=== PATIENT | female | born 1945 | race Caucasian/White ===

== ENCOUNTER → 2016-11-21 | Outpatient (CLI) | payer OTHER, MEDICARE | LOC: FIMAGING 10:00 | PROVIDERS: ATTEND Physical Medicine & Rehabilitation | DX: M50.321 Other cervical disc degeneration at C4-C5 level (principal); M50.322 Other cervical disc degeneration at C5-C6 level; M50.323 Other cervical disc degeneration at C6-C7 level; M12.88 Other specific arthropathies, not elsewhere classified, other specified site ==

== ENCOUNTER → 2017-03-12 | Outpatient (CLI) | payer OTHER, MEDICARE | LOC: BMCIMAGING 12:54 | PROVIDERS: ATTEND Family Medicine | DX: Z12.31 Encounter for screening mammogram for malignant neoplasm of breast (principal); Z85.3 Personal history of malignant neoplasm of breast; Z80.3 Family history of malignant neoplasm of breast | CPT/HCPCS: G0202 ==

== ENCOUNTER → 2017-12-02 | Outpatient (CLI) | payer OTHER, MEDICARE | LOC: BMCIMAGING 13:30 | PROVIDERS: ATTEND Internal Medicine | DX: Z13.820 Encounter for screening for osteoporosis (principal); M81.0 Age-related osteoporosis without current pathological fracture; Z78.0 Asymptomatic menopausal state; Z85.3 Personal history of malignant neoplasm of breast ==

== ENCOUNTER → 2018-03-18 | Outpatient (CLI) | payer OTHER, MEDICARE | LOC: BMCIMAGING 14:01 | PROVIDERS: ATTEND Internal Medicine | DX: Z12.31 Encounter for screening mammogram for malignant neoplasm of breast (principal); Z86.000 Personal history of in-situ neoplasm of breast; Z80.3 Family history of malignant neoplasm of breast ==

== ENCOUNTER 2018-07-09 13:45 | Observation (INO) | payer OTHER, MEDICARE ==
[2018-07-09] MEDS ORDERED: NS 1,000 ML IV ONE (13:57)
[2018-07-09] MEDS ORDERED: IOPAMIDOL (ISOVUE 370) 100 ML BTL IV ONE (14:00)
--- NOTE | 2018-07-09 14:02 | EDPHY ---
H & P Time Seen by Provider: 07/09/18 13:48 HPI/ROS: CHIEF COMPLAINT: Difficulty speaking, feeling jittery HISTORY OF PRESENT ILLNESS: The patient is a 72-year-old female with a history of bipolar 2 disorder on Seroquel, Lamictal and Ativan who noticed at 1245 the that she felt like she had taken LSD which she states she has not done for 50 years. She states that she has trouble speaking and that her words seem encumbered. Her speech is not slurred. She has trouble forming words. She also states that she felt like she was vibrating. She has not had any recent changes in her medication. Her noticed the difference dramatically compared to earlier this morning. They called 911. Her stroke scale by EMS was negative. She also thinks that she is dehydrated. Severity: Moderate Modifying factors: None REVIEW OF SYSTEMS: Constitutional: denies: chills, fever, recent illness, recent injury EENTM: denies: blurred vision, double vision, nose congestion Respiratory: denies: cough, shortness of breath Cardiac: denies: chest pain, irregular heart rate, lightheadedness, palpitations Gastrointestinal/Abdominal: denies: abdominal pain, diarrhea, nausea, vomiting, blood streaked stools Genitourinary: denies: dysuria, frequency, hematuria, pain Musculoskeletal: denies: joint pain, muscle pain Skin: denies: lesions, rash, jaundice, bruising Neurological: See HPI denies: headache, numbness, paresthesia, tingling, dizziness, weakness Hematologic/Lymphatic: denies: blood clots, easy bleeding, easy bruising Immunologic/allergic: denies: HIV/AIDS, transplant 10 systems reviewed and negative except as noted - Physical Exam General Appearance: WD/WN, mild distress Eyes, Ears, Nose, Throat Exam: PERRL/EOMI, normal ENT inspection, pharynx normal Neck: non-tender, full range of motion, supple, normal inspection. No: stiff neck, tender lateral Cardiovascular/Chest: normal peripheral pulses, regular rate, rhythm Respiratory: chest non-tender, lungs clear, normal breath sounds. No: crackles , rhonchi Gastrointestinal/Abdominal: normal bowel sounds, non tender, soft Back Exam: normal inspection Extremity: normal range of motion, non-tender, normal inspection Mental Status: alert, oriented x 3 CN's Exam: normal hearing, normal speech, PERRL, normal eye position, normal gag reflex, normal pupil position, tends to stutter over words and has trouble pronouncing the words but does not have obvious slurred speech or aphasia. No: facial asymmetry, facial droop, facial paresthesias, gaze palsy, tongue deviation to R, tongue deviation to L Coordination/Gait: normal finger to nose, normal gait Motor/Sensory: normal. No: motor deficit, sensory deficit, pronator drift (R), pronator drift (L), weak motor strength RUE, weak motor strength LUE, weak motor strength RLE, weak motor strength LLE reports difficulty walking and required the assistance of both EMS personnel. NIH stroke scale 0. DTR: tricep (R): 2+, tricep (L): 2+, knee (R): 2+, knee (L): 2+ Skin Exam: warm/dry, normal color Lymphatic: no adenopathy Source: Patient, Family, EMS Exam Limitations: No limitations - Medical/Surgical History Hx Asthma: No Hx Chronic Respiratory Disease: No Hx Diabetes: No Hx Cardiac Disease: No Hx Renal Disease: No Hx Cirrhosis: No Hx Alcoholism: No Hx HIV/AIDS: No - Family History Significant Family History: No pertinent family hx - Social History Smoking Status: Never smoked Alcohol Use: Sober Drug Use: None Constitutional: Initial Vital Signs Heart Rate 92 07/09/18 13:49 Respiratory Rate 18 07/09/18 13:49 Blood Pressure 120/60 07/09/18 13:49 O2 Sat (%) 98 07/09/18 13:49 O2 Delivery Mode Room Air Allergies/Adverse Reactions: Sulfa (Sulfonamide Antibiotics) Allergy (Severe, Verified 07/09/18 17:13) Rash Home Medications: Medication Instructions Recorded Estring 1 each VG Q90D 07/09/18 Ibuprofen [Motrin (*)] 600 mg PO BID PRN 07/09/18 LORazepam [Ativan (*)] 0.5 mg PO HS 07/09/18 Ondansetron Odt [Zofran Odt 4 mg 4 mg PO DAILY PRN 07/09/18 (*)] Oxybutynin Chloride [Ditropan 5mg 5 mg PO DAILY 07/09/18 (RX)] QUEtiapine FUMARATE [Seroquel 25 25 mg PO HS 07/09/18 mg (*)] QUEtiapine FUMARATE [Seroquel 50 50 mg PO HS 07/09/18 mg (*)] SUMAtriptan [Imitrex Sc 6 MG Inj 6 mg SQ DAILY PRN 07/09/18 (RX)] Sumatriptan Succinate [Imitrex] 100 mg PO DAILY PRN 07/09/18 lamoTRIgine [LamICTAL 100 MG (*)] 100 mg PO DAILY 07/09/18 tiZANidine HCL [Zanaflex 2MG (*)] 2 mg PO DAILY PRN 07/09/18 Medical Decision Making - Diagnostics EKG Interpretation: An EKG obtained and was read and documented in trace view. Please see trace view for full reading and report. Sinus tachycardia, no acute ischemic changes Imaging Results: Imaging Impressions Chest X-Ray 07/09/18 13:57 Impression: Negative portable chest x-ray. Head CT 07/09/18 13:57 Impression: No acute intercranial process. Findings and recommendations discussed with MATILDE BYRNES at 1420 hour, 07/09. Head CTA 07/09/18 13:57 Impression: 1. Normal CT angiogram of the neck. Incidental small caliber right vertebral artery is evident. 2. Normal CT angiogram of the [place], as detailed above. 3. Mild degenerative disk disease lower cervical spine. Note: All calculations were performed using NASCET criteria. Findings discussed with Matilde Byrnes M.D. at 15:37 hour, 07/09/2018. Neck CTA 07/09/18 13:57 Impression: 1. Normal CT angiogram of the neck. Incidental small caliber right vertebral artery is evident. 2. Normal CT angiogram of the [place], as detailed above. 3. Mild degenerative disk disease lower cervical spine. Note: All calculations were performed using NASCET criteria. Findings discussed with Matilde Byrnes M.D. at 15:37 hour, 07/09/2018. Imaging: Discussed imaging studies w/ call center representative Radiologist ED Course/Re-evaluation: The patient's NIH stroke scale 0 however she does have difficulty forming the words in her mouth and she and both state that this is an acute change about an hour ago. I have called a stroke alert. She also appears dehydrated will began hydrating. 2:30 p.m. I discussed the case with Dr. Zimmerman from [facility] who will elevate. 2:45 p.m. the patient is improving spontaneously although not completely resolved. Dr. Zimmerman does not recommend tPA at this time because the improvement. He does recommend CT angio. If this is negative he recommends admission for observation and MRI 3:[address] angio was clear. The patient her feel like her symptoms are starting to get worse again and that she is feeling jittery. I do not appreciate any difference clinically. Will have [facility] re-evaluate. [facility] has re-evaluated and still feels that the patient does not meet criteria for tPA. I discussed the case with Dr. Wesley its PA who will admit to the medical service. Differential Diagnosis: Partial list of the Differential diagnosis considered include but were not limited to; CVA, anxiety, and although unlikely based on the history and physical exam, I also considered seizure, medication reaction. Critical Care Time: Critical care time spent by me, Dr. Byrnes exclusive with this patient was 45 minutes, exclusive of the PA time exclusive of procedures. The organ system that was at risk was neurologic and I gave multiple re-evaluations, consultation and admission to prevent worsening of the patient's condition - Data Points Laboratory Results: Laboratory Results 07/09/18 13:50 07/09/18 13:50 07/09/18 07/09/18 07/09/18 14:03 13:50 13:50 WBC RBC Hgb POC Hgb 15.0 gm/dL gm/dL (12.6-16.3) Hct POC Hct 44 % % (38-47) MCV MCH MCHC RDW Plt Count MPV Neut % (Auto) Lymph % (Auto) Taney % (Auto) Eos % (Auto) Baso % (Auto) Nucleat RBC Rel Count Absolute Neuts (auto) Absolute Lymphs (auto) Absolute Monos (auto) Absolute Eos (auto) Absolute Basos (auto) Absolute Nucleated RBC Immature Gran % Immature Gran # PT 13.0 SEC SEC (12.0-15.0) INR 0.96 (0.83-1.16) APTT 26.0 SEC SEC (23.0-38.0) POC Sodium 139 mEq/L mEq/L (135-145) Sodium 136 mEq/L mEq/L (135-145) POC Potassium 3.7 mEq/L mEq/L (3.3-5.0) Potassium 4.3 mEq/L mEq/L (3.3-5.0) POC Chloride 102 mEq/L mEq/L (97-110) Chloride 102 mEq/L mEq/L (97-110) Carbon Dioxide 22 mEq/l mEq/l (22-31) Anion Gap 12 mEq/L mEq/L (6-14) POC BUN 18 mg/dL mg/dL (7-23) BUN 19 mg/dL mg/dL (7-23) Creatinine 0.9 mg/dL mg/dL (0.6-1.0) POC Creatinine 0.9 mg/dL mg/dL (0.6-1.0) Estimated GFR > 60 Glucose 116 mg/dL H mg/dL (70-100) POC Glucose 121 mg/dL H mg/dL (70-100) Calcium 9.9 mg/dL mg/dL (8.5-10.4) 07/09/18 13:50 WBC 11.21 10^3/uL H 10^3/uL (3.80-9.50) RBC 4.54 10^6/uL 10^6/uL (4.18-5.33) Hgb 13.9 g/dL g/dL (12.6-16.3) POC Hgb Hct 40.9 % % (38.0-47.0) POC Hct MCV 90.1 fL fL (81.5-99.8) MCH 30.6 pg pg (27.9-34.1) MCHC 34.0 g/dL g/dL (32.4-36.7) RDW 13.1 % % (11.5-15.2) Plt Count 259 10^3/uL 10^3/uL (150-400) MPV 10.3 fL fL (8.7-11.7) Neut % (Auto) 58.6 % % (39.3-74.2) Lymph % (Auto) 29.9 % % (15.0-45.0) Taney % (Auto) 7.6 % % (4.5-13.0) Eos % (Auto) 2.9 % % (0.6-7.6) Baso % (Auto) 0.7 % % (0.3-1.7) Nucleat RBC Rel Count 0.0 % % (0.0-0.2) Absolute Neuts (auto) 6.58 10^3/uL H 10^3/uL (1.70-6.50) Absolute Lymphs (auto) 3.35 10^3/uL H 10^3/uL (1.00-3.00) Absolute Monos (auto) 0.85 10^3/uL H 10^3/uL (0.30-0.80) Absolute Eos (auto) 0.32 10^3/uL 10^3/uL (0.03-0.40) Absolute Basos (auto) 0.08 10^3/uL 10^3/uL (0.02-0.10) Absolute Nucleated RBC 0.00 10^3/uL 10^3/uL (0-0.01) Immature Gran % 0.3 % % (0.0-1.1) Immature Gran # 0.03 10^3/uL 10^3/uL (0.00-0.10) PT INR APTT POC Sodium Sodium POC Potassium Potassium POC Chloride Chloride Carbon Dioxide Anion Gap POC BUN BUN Creatinine POC Creatinine Estimated GFR Glucose POC Glucose Calcium Medications Given: Discontinued Medications Sodium Chloride (Ns) 1,000 mls @ 500 mls/hr IV EDNOW ONE PRN Reason: Protocol Stop: 07/09/18 15:56 Last Admin: 07/09/18 14:25 Dose: 1,000 mls Lorazepam (Ativan Injection) 1 mg IVP EDNOW ONE Stop: 07/09/18 15:34 Last Admin: 07/09/18 15:38 Dose: 1 mg Point of Care Test Results: Chemistry 07/09/18 14:03 POC Sodium 139 mEq/L mEq/L (135-145) POC Potassium 3.7 mEq/L mEq/L (3.3-5.0) POC Chloride 102 mEq/L mEq/L (97-110) POC BUN 18 mg/dL mg/dL (7-23) POC Creatinine 0.9 mg/dL mg/dL (0.6-1.0) POC Glucose 121 mg/dL H mg/dL (70-100) ISTAT H&H 07/09/18 14:03 POC Hgb 15.0 gm/dL gm/dL (12.6-16.3) POC Hct 44 % % (38-47) Departure - Departure Disposition: [facility] Inpatient Acute Clinical Impression: Difficulty speaking Condition: Fair
[2018-07-09 14:13] LABS: PLATELET COUNT 259 10^3/uL (150-400)
[2018-07-09 14:22] LABS: INR 0.96 (0.83-1.16)
[2018-07-09] MEDS ORDERED: LORazepam 2 MG/ML INJ IVP ONE (15:33)
--- NOTE | 2018-07-09 16:34 | CPEKG ---
Test Reason : OPEN Blood Pressure : / mmHG Vent. Rate : 109 BPM Atrial Rate : 110 BPM P-R Int : 190 ms QRS Dur : 084 ms QT Int : 337 ms P-R-T Axes : 067 011 036 degrees QTc Int : 454 ms Sinus tachycardia Probable left atrial enlargement Confirmed by Juan Byrnes ([id number]) on 07/09/2018 4:34:00 PM Referred By: Confirmed By:Juan Byrnes
[2018-07-09] MEDS ORDERED: IBUPROFEN 600 MG TAB PO PRN (18:38)
[2018-07-09] MEDS ORDERED: tiZANidine HCL 2 MG TAB PO PRN (18:38)
[2018-07-09] MEDS ORDERED: ONDANSETRON DISINTEGRATING 4 MG TAB PO PRN (18:38)
--- NOTE | 2018-07-09 20:35 | GHP ---
DATE OF ADMISSION: 07/09/2018 REASON FOR ADMISSION: Acute mental status change, probable partial seizure. HISTORY: The patient is a 72-year-old female, who was in normal state of health until this morning when she was sitting in a chair and felt a sense of a ping in the back of her head followed by tremulousness and shaking, difficulty with movement, and difficulty with expressing words. She states that she was able to think clearly during this time, although during a couple of periods of time she did become anxious, was able to keep that under control. She had great difficulty communicating with her , who called 911. She had difficulty with the senior courtroom clerk. There was some concern initially about a stroke; however, she had no focal findings, no weakness, and although she had difficulty with speech it was not based on any specific focal abnormality. She was seen in the emergency room, where she had a CT angiogram of the neck and head, which showed no abnormalities whatsoever. She had a CT scan of her head, which showed no acute intracranial process. EKG was unremarkable. She is being admitted with the tentative diagnosis of possible migraine equivalent; however, I feel that it is much more likely to be in a seizure family of disorders. By the time I saw her, her symptoms had finally cleared, which took several hours. She still had some occasional sense of mild jerkiness or occasional loss of her train of thought. PAST MEDICAL HISTORY: Significant for mild asthma, history of bipolar disorder , chronic fatigue, migraine, overactive bladder, anxiety, reflux esophagitis, lumbago, frequent urinary tract infections, dyslipidemia. She does have a coronary calcium score of 0 and clear carotid ultrasounds. CURRENT MEDICATIONS: Myrbetriq 25 mg daily, sumatriptan as needed for migraines , oxybutynin 5 mg twice daily, omega-3, Lamictal 200 mg daily, lorazepam 1 mg daily, Seroquel 50 mg daily, Celebrex 200 mg daily, Ambien as needed for sleep. REVIEW OF SYSTEMS: She had been doing reasonably well. Although, she states that in retrospect she can think of several episodes where similar symptoms had happened but just did not become this significant. She has been trying to wean her medications and has reduced her lorazepam by 0.5 mg as of several months ago. PHYSICAL EXAMINATION: GENERAL: Reveals a pleasant 72-year-old female lying in bed in no distress. She is alert, oriented, and appropriate. VITAL SIGNS: Blood pressure 118/72 with pulse of 100, oxygen saturation 90% to 95% on room air. HEENT: Pupils equal and reactive. LUNGS: Clear. HEART: Regular rate and rhythm. EXTREMITIES: She moves all extremities with normal dexterity. She has no peripheral edema. LABORATORY DATA: A review of blood work shows mildly elevated white blood cell count of 11.2 with a bit of a left shift. Electrolytes were normal. Blood sugar was minimally elevated at 116. INR was 0.9. IMPRESSION: A constellation of symptoms I feel most consistent with a partial complex seizure. It is unusual that it has lasted this long; however, considering the psychotropic medications she is taking, her seizure threshold is lowered. I do not think this has anything to do with cerebrovascular disease , as it was not unilateral and her CT angiograms were completely clear. It has no resemblance to any of the migraines she has ever had. She vehemently denies taking any medications that could have given her this type of sensations. PLAN: We will admit. We will get a neurology consult. We will follow her symptoms closely. /[id number]/MODL MTDD
[2018-07-09] MEDS ORDERED: QUEtiapine FUMARATE 50 MG TAB PO SCH (21:00)
[2018-07-09] MEDS ORDERED: QUEtiapine FUMARATE 25 MG TAB PO SCH (21:00)
[2018-07-09] MEDS ORDERED: LORazepam 0.5 MG TAB PO SCH (21:00)
[2018-07-09] MEDS ORDERED: SUMAtriptan 6 MG/0.5 ML VIAL SC PRN (21:44)
[2018-07-10] MEDS ORDERED: SUMAtriptan 50 MG TAB PO PRN (06:51)
[2018-07-10] MEDS ORDERED: lamoTRIgine 100 MG TAB PO SCH (09:00)
[2018-07-10] MEDS ORDERED: OXYBUTYNIN CHLORIDE 5 MG TAB PO SCH (09:00)
--- NOTE | 2018-07-10 10:06 | SOAPPROG ---
SOAP Progress Note Assessment/Plan: Assessment: 72 yo female who was brought in by ambulance after experiencing difficulty with expression of words, movement, and tremulousness at home. She was lucid during the event. On eval in the ED she was not demonstrating any focal deficits, though she was still expressing trouble with word finding. She had a CT angio of the neck and head which was normal, and a CT of her head which was without any acute changes. Her EKG was WNL. Initially there was concern for a stroke, though her symptoms seem more c/w something in the seizure family vs possible serotonin syndrome. Neuro has been consulted and MRI of the brain is pending this AM. Plan: Acute neurologic changes - resolved and Deb is feeling completely at baseline this AM. Neuro exam is NL today. MRI brain is pending and Neuro to consult. Will also consider EEG as outpt as this is not routinely performed on the weekends as inpt. H/o bipolar - seroquel, currently stable, managed outpt Migraine HAs - uses imitrex and admits to using PO about 4 times over the past week, does not thing she used any injections. Currently w/o migraine sx. Also has used botox injections in the past, last one in November Anxiety - lorazepam 1mg qhs at home, currently stable GERD - prn zantac Chr pain - uses hydrocodone-acetaminophen q6h prn at home, currently stable Dispo - possibly home this afternoon pending neuro consult and MRI results with outpt f/u 07/10/18 10:06 Subjective: Deb is resting in bed this AM. She says she is feeling completely back to her baseline and is without any neuro changes this AM. Eager to go home. Objective: Vital Signs Temp Pulse Resp BP Pulse Ox 37.1 C 76 16 106/68 92 07/10/18 08:00 07/10/18 08:00 07/10/18 08:00 07/10/18 08:00 07/10/18 04:00 07/09/18 07/10/18 07/11/18 05:59 05:59 05:59 Intake Total 1500 Output Total 1300 Balance 200 PT 13.0 SEC (12.0-15.0) 07/09/18 13:50 INR 0.96 (0.83-1.16) 07/09/18 13:50 Gen- alert, oriented, vitals stable Head- normocephalic, atraumatic EENT- PEERL, EOMI Resp- LCTAB, no wheezing, rhonchi, rales CV- S1S2, RRR, no murmurs, rubs, gallops Abd- SNT, nondistended, + bs Extremities- no peripheral edema Skin- warm and dry Neuro- grossly intact, no focal deficits Psych- mood and affect full range ICD10 Worksheet Patient Problems: Problems Problem Status Onset Difficulty speaking Acute
[2018-07-10] MEDS ORDERED: CARBOXYMETHYLCELLULOSE 0.5% 0.4 ML DROPERETTE EACHEYE PRN (10:17)
--- NOTE | 2018-07-10 15:03 | NEUROPROG ---
Assessment: HOSPITAL NEUROLOGY CONSULT REQUESTING: Giuseppe Wesley MD REASON: seizure HPI: 72 year old woman with a history of bipolar, chronic fatigue, migraines, polypharmacy presented to the ED yesterday with neurologic symptoms. Day of admission patient was resting in bed and around 1245 she experienced abrupt onset shaking of her vision. She states everything in her vision in both eyes felt like it was vibrating. She also developed slurring of the speech without any aphasia. Her was with her and here today and notes the patient had no adventitious movements of the eyes and not facial weakness. notes the content of the patient's speech was normal, but slurred. Symptoms persisted so they called EMS. En route she was improving. Stroke alert called in ED and she was NIHSS 0. However, symptoms mildly returned so a reassessment was requested, but it was thought this was a migrainous equivalent , so tPA was not pursued. She had a CTA head/neck which was unremarkable. Patient states her symptoms waxed and waned for hours, but resolved later in the evening. She had no vision loss, weakness, sensory loss, vertigo. She denies JACQUES or photophobia, but had a little nausea. She gets migraines quite frequently that manifest as throbbing head pain with nausea and light sensitivity, but she's not had an aura. She feels back to baseline today. Denies any changes in her medication leading up to the event. ROS: As per the HPI, otherwise a complete 12 point ROS was performed and is negative ALLERGIES AND MEDS: As recorded in the EMR - reviewed and reconciled PFSH: As per the intake H&P by Dr. Wesley from yesterday EXAM: VS reviewed in EMR GEN: WDWN laying in NAD HEENT: NCAT, sclera anicteric, conjunctiva not injected, MMM, oropharynx clear, no scalp tenderness NECK: supple, nontender, no meningismus CV: RRR s1 s2 wo m/r/c/g. Carotid pulses 2+ wo bruit NEURO: MS: awake, alert, oriented to all spheres. Speech nondysarthric. No language disturbance. Follows commands. Attends to both sides. Recent/remote memory grossly intact. Mood euthymic. Good fund of knowledge. CN: pupils 3mm round and reactive. Fundi with sharp discs. VFF. Primary gaze centered. Full ocular motility. Facial sensation preserved. Face symmetric. Hearing grossly intact to finger rub. Palatoglossal movements intact. Shoulder shrug and head turn strong. MOTOR: normal bulk/tone. No adventitial movements. Full power throughout. SENSORY: intact to all modalities throughout. No extinction. COORD: no ataxia FN/HS. Adina preserved. REFLEX: plantars down. No clonus. Absent ankle jerks, other DTRS 2/4. GAIT: deferred to PT safety eval DATA REVIEW: Labs reviewed in EMR PERSONALLY INTERPRETED RESULTS AND DATA: MRI brain wo - normal CTA head/neck - congenitally diminutive right vert, but otherwise normal study IMPRESSION AND RECOMMENDATIONS: // SUSPECT LATE-LIFE MIGRAINOUS EVENT Patient with vibration of her vision and slurred speech which waxed and waned. Vascular work up is unremarkable. Exam is normal. Semiology of events does not resemble seizure. Given her history of migraine and the symptoms, I suspect a late-life migrainous accompaniment. Advised she establish with our group for migraine management and further follow up. We reviewed stroke education with a focus on activating EMS for any stroke-like symptoms. She will follow up with PCP and our office this week. Objective: Vital Signs Temp Pulse Resp BP Pulse Ox 36.6 C 74 19 113/58 L 93 07/10/18 11:38 07/10/18 11:38 07/10/18 11:38 07/10/18 11:38 07/10/18 11:38 07/09/18 07/10/18 07/11/18 05:59 05:59 05:59 Intake Total 1500 Output Total 1300 Balance 200 PT 13.0 SEC (12.0-15.0) 07/09/18 13:50 INR 0.96 (0.83-1.16) 07/09/18 13:50 Allergies/Adverse Reactions: Sulfa (Sulfonamide Antibiotics) Allergy (Severe, Verified 07/09/18 17:13) Rash
--- NOTE | 2018-07-10 15:29 | ASDISCHSUM ---
Discharge Information Plan Status:Home with No Needs Medically Cleared to Leave:07/10/2018 Discharge Date:07/10/2018 CM D/C Disposition:Home, Routine, Self-Care ADT D/C Disposition:Home, Routine, Self-Care Projected Discharge Date:07/10/2018 Transportation at D/C:Family Discharge Delay Reason: Follow-Up Date:07/10/2018 Discharge Slot: Final Diagnosis: Placement Information Patient Contact Information Contact Name:GAIL Relationship: Address:[address] City:[place] Alternate Phone: [facility]/Zip Code:[place] [address] Email: Financial Information Financial Class:Medicare Primary Plan Desc:MEDICARE OUTPATIENT Primary Plan Number:[id number] Secondary Plan Desc:[employer]/MDR SUPPLEMENT Secondary Plan Number:[id number] Assessment Information BC CM Progress Note CM Note CM Note Notes: Pt has been admitted with AMS, possible seizure activity. She has a hx of Bipolar d/o, anxiety, PTSD, UTIs, migraines. Neuro consulting. Pt lives with her in [place]. She has been medically cleared to d/c and will d/c home today with no CM needs. Date Signed: 07/10/2018 03:28 PM Electronically Signed By:MARIAH Christopher Intervention Information Intervention Type:No Admission Order Date of Service:07/10/2018 10:04 AM Patient Type:Observation Staff Member:Kavya Olsen Hours: Discipline: Severity: Comment:
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
[2018-07-10 15:52] VITALS: BP 117/82
--- NOTE | 2018-07-10 16:14 | GDS ---
PRIMARY ADMISSION DIAGNOSIS: Acute mental status change and possible seizure. HISTORY OF PRESENTING ILLNESS: Deb is a 72-year-old female who was brought in by ambulance accomp anied by her after having trouble thinking clearly, trouble expressing words, and difficulty with movement. She was mildly anxious but said that she was able to keep that under control. She fajardo d a challenging time communicating with both her and EMS. There was initially concern for st roke. However, she did not have any focal findings or neuro deficits that were consistent with a str anabela. In the emergency department, she had a CT angiogram of the neck and head which were both normal , as well as a CT of her head which showed no acute processes. Her EKG was unremarkable. She was ad mitted for concern of the possible seizure versus serotonin syndrome, and she was evaluated by Neurol kristie. MRI this morning was without acute changes, and she is completely back to baseline this morning without any neuro changes. She will be followed up in the office as an outpatient. DISCHARGE MEDICATIONS: Include Seroquel 25 mg p.o. q.h.s., Ativan 0.5 mg p.o. q.h.s., Lamictal 100 m g p.o. daily, Seroquel 50 mg p.o. q.h.s., Ditropan 5 mg p.o. daily, Imitrex 100 mg p.o. daily p.r.n., Imitrex 6 mg subcu daily p.r.n. Zanaflex 2 mg p.o. daily p.r.n., Zofran 4 mg daily p.r.n., Estring 1 vaginally every 90 days, Motrin 600 mg p.o. twice daily p.r.n. FOLLOWUP: Again the patient will be followed up as an outpatient with her primary care provider. /[id number]/MODL
[2018-09-21] MEDS ORDERED: ESTRING VG SCH (09:00)
== END 2018-07-10 16:28 | disposition home or self-care (01) ==
LOC: EDUNIT# → F3N 18:20
PROVIDERS: ADMIT Internal Medicine; ATTEND Internal Medicine
DX: R47.89 Other speech disturbances (principal); R29.700 NIHSS score 0; F31.9 Bipolar disorder, unspecified; F41.9 Anxiety disorder, unspecified; M50.321 Other cervical disc degeneration at C4-C5 level
CPT/HCPCS: 70450; 70496; 70498; 70551; 71045; 93005; 96361; 96374; 99291; G0378; J2060; Q9967; 82435-PO; 82565-PO; 82947-PO; 84132-PO; 84295-PO; 84520-PO; 85014-PO; J3030

== ENCOUNTER → 2019-01-19 | Outpatient (CLI) | payer OTHER, MEDICARE | LOC: FIMAGING 07:51 | PROVIDERS: ATTEND Internal Medicine | DX: S83.231A Complex tear of medial meniscus, current injury, right knee, initial encounter (principal); S83.281A Other tear of lateral meniscus, current injury, right knee, initial encounter; M94.8X6 Other specified disorders of cartilage, lower leg; M71.21 Synovial cyst of popliteal space [Baker], right knee ==

== ENCOUNTER → 2019-03-21 | Outpatient (CLI) | payer OTHER, MEDICARE | LOC: BMCIMAGING 13:52 ==